=== PATIENT | male | born 1950 | race Hispanic/Latino ===

== ENCOUNTER 2021-09-25 10:17 | Outpatient (CLI) | payer MEDICARE, BC | END 2021-09-25 10:18 | disposition home or self-care (01) | LOC: CSHWCC 10:17 | PROVIDERS: ATTEND Nurse Practitioner Family | DX: E11.621 Type 2 diabetes mellitus with foot ulcer (principal); L97.529 Non-pressure chronic ulcer of other part of left foot with unspecified severity; E03.9 Hypothyroidism, unspecified; E11.42 Type 2 diabetes mellitus with diabetic polyneuropathy; E78.2 Mixed hyperlipidemia; I25.84 Coronary atherosclerosis due to calcified coronary lesion; I70.203 Unspecified atherosclerosis of native arteries of extremities, bilateral legs; I96 Gangrene, not elsewhere classified; Z89.511 Acquired absence of right leg below knee | CPT/HCPCS: 97139; G0463; 99203 ==

== ENCOUNTER 2021-10-02 10:48 | Outpatient (CLI) | payer MEDICARE, BC | END 2021-10-02 10:49 | disposition home or self-care (01) | LOC: CSHWCC 10:48 | PROVIDERS: ATTEND Nurse Practitioner Family | DX: E11.621 Type 2 diabetes mellitus with foot ulcer (principal); E03.9 Hypothyroidism, unspecified; E11.42 Type 2 diabetes mellitus with diabetic polyneuropathy; L97.529 Non-pressure chronic ulcer of other part of left foot with unspecified severity; E78.2 Mixed hyperlipidemia; I25.84 Coronary atherosclerosis due to calcified coronary lesion; I70.203 Unspecified atherosclerosis of native arteries of extremities, bilateral legs; I96 Gangrene, not elsewhere classified; Z89.511 Acquired absence of right leg below knee | CPT/HCPCS: 97139; G0463; 99213 ==

== ENCOUNTER 2021-10-15 08:21 | Outpatient (CLI) | payer MEDICARE, BC | END 2021-10-15 08:22 | disposition home or self-care (01) | LOC: CSHWCC 08:21 | PROVIDERS: ATTEND Nurse Practitioner Family | DX: I96 Gangrene, not elsewhere classified (principal); E11.621 Type 2 diabetes mellitus with foot ulcer; L97.529 Non-pressure chronic ulcer of other part of left foot with unspecified severity; E11.42 Type 2 diabetes mellitus with diabetic polyneuropathy; E11.51 Type 2 diabetes mellitus with diabetic peripheral angiopathy without gangrene; I70.203 Unspecified atherosclerosis of native arteries of extremities, bilateral legs; I25.10 Atherosclerotic heart disease of native coronary artery without angina pectoris; I25.84 Coronary atherosclerosis due to calcified coronary lesion; E03.9 Hypothyroidism, unspecified; E78.2 Mixed hyperlipidemia; Z89.511 Acquired absence of right leg below knee ==

== ENCOUNTER 2021-10-30 08:02 | Outpatient (CLI) | payer MEDICARE, BC | END 2021-10-30 08:03 | disposition home or self-care (01) | LOC: CSHWCC 08:02 | PROVIDERS: ATTEND Nurse Practitioner Family | DX: I96 Gangrene, not elsewhere classified (principal); E11.621 Type 2 diabetes mellitus with foot ulcer; L97.529 Non-pressure chronic ulcer of other part of left foot with unspecified severity; E03.9 Hypothyroidism, unspecified; E11.42 Type 2 diabetes mellitus with diabetic polyneuropathy; E11.51 Type 2 diabetes mellitus with diabetic peripheral angiopathy without gangrene; I70.203 Unspecified atherosclerosis of native arteries of extremities, bilateral legs; I25.10 Atherosclerotic heart disease of native coronary artery without angina pectoris; I25.84 Coronary atherosclerosis due to calcified coronary lesion; Z89.511 Acquired absence of right leg below knee ==

== ENCOUNTER 2021-11-13 08:32 | Outpatient (CLI) | payer MEDICARE, BC | END 2021-11-13 08:33 | disposition home or self-care (01) | LOC: CSHWCC 08:32 | PROVIDERS: ATTEND Nurse Practitioner Family | DX: E11.621 Type 2 diabetes mellitus with foot ulcer (principal); L97.529 Non-pressure chronic ulcer of other part of left foot with unspecified severity; E03.9 Hypothyroidism, unspecified; E11.42 Type 2 diabetes mellitus with diabetic polyneuropathy; E78.2 Mixed hyperlipidemia; I25.84 Coronary atherosclerosis due to calcified coronary lesion; I70.203 Unspecified atherosclerosis of native arteries of extremities, bilateral legs; I96 Gangrene, not elsewhere classified; Z89.511 Acquired absence of right leg below knee ==

== ENCOUNTER 2021-12-08 08:19 | Outpatient (CLI) | payer MEDICARE, BC | END 2021-12-08 08:20 | disposition home or self-care (01) | LOC: CSHWCC 08:19 | PROVIDERS: ATTEND Nurse Practitioner Family | DX: E11.621 Type 2 diabetes mellitus with foot ulcer (principal); L97.529 Non-pressure chronic ulcer of other part of left foot with unspecified severity; I96 Gangrene, not elsewhere classified; E03.9 Hypothyroidism, unspecified; E11.42 Type 2 diabetes mellitus with diabetic polyneuropathy; E78.2 Mixed hyperlipidemia; I25.84 Coronary atherosclerosis due to calcified coronary lesion; I70.203 Unspecified atherosclerosis of native arteries of extremities, bilateral legs; Z89.511 Acquired absence of right leg below knee ==

== ENCOUNTER 2023-01-28 08:06 | Outpatient (CLI) | payer MEDICARE, BC | END 2023-01-28 08:07 | disposition home or self-care (01) | LOC: CSHWCC 08:06 | PROVIDERS: ATTEND Nurse Practitioner Family | DX: E11.621 Type 2 diabetes mellitus with foot ulcer (principal); L97.521 Non-pressure chronic ulcer of other part of left foot limited to breakdown of skin | CPT/HCPCS: 11042; 97139; G0463; 99213 ==

== ENCOUNTER 2023-02-11 10:56 | Outpatient (CLI) | payer MEDICARE, BC | END 2023-02-11 10:57 | disposition home or self-care (01) | LOC: CSHWCC 10:56 | PROVIDERS: ATTEND Nurse Practitioner Family | DX: E11.621 Type 2 diabetes mellitus with foot ulcer (principal); L97.521 Non-pressure chronic ulcer of other part of left foot limited to breakdown of skin | CPT/HCPCS: 11042 ==

== ENCOUNTER 2023-03-11 10:27 | Outpatient (CLI) | payer MEDICARE, BC | END 2023-03-11 10:28 | disposition home or self-care (01) | LOC: CSHWCC 10:27 | PROVIDERS: ATTEND Nurse Practitioner Family | DX: E11.621 Type 2 diabetes mellitus with foot ulcer (principal); L97.521 Non-pressure chronic ulcer of other part of left foot limited to breakdown of skin | CPT/HCPCS: 11042; 97139; G0463; 99212 ==

== ENCOUNTER 2023-05-06 09:37 | Outpatient (CLI) | payer MEDICARE, BC | END 2023-05-06 09:38 | disposition home or self-care (01) | LOC: CSHWCC 09:37 | PROVIDERS: ATTEND Nurse Practitioner Family | DX: E11.621 Type 2 diabetes mellitus with foot ulcer (principal); L97.521 Non-pressure chronic ulcer of other part of left foot limited to breakdown of skin | CPT/HCPCS: 11042 ==

== ENCOUNTER 2023-06-17 09:46 | Outpatient (CLI) | payer MEDICARE, BC | END 2023-06-17 09:47 | disposition home or self-care (01) | LOC: CSHWCC 09:46 | PROVIDERS: ATTEND Nurse Practitioner Family | DX: E11.621 Type 2 diabetes mellitus with foot ulcer (principal); L97.521 Non-pressure chronic ulcer of other part of left foot limited to breakdown of skin | CPT/HCPCS: 97139; G0463; 11042; 99211 ==

== ENCOUNTER 2023-07-15 09:33 | Outpatient (CLI) | payer MEDICARE, BC | END 2023-07-15 09:34 | disposition home or self-care (01) | LOC: CSHWCC 09:33 | PROVIDERS: ATTEND Nurse Practitioner Family | DX: E11.621 Type 2 diabetes mellitus with foot ulcer (principal); L97.521 Non-pressure chronic ulcer of other part of left foot limited to breakdown of skin | CPT/HCPCS: 11042 ==

== ENCOUNTER 2023-08-04 10:07 | Outpatient (CLI) | payer MEDICARE, BC | END 2023-08-04 10:08 | disposition home or self-care (01) | LOC: CSHULT 10:07 | PROVIDERS: ATTEND Physician Assistant Medical | DX: R74.8 Abnormal levels of other serum enzymes (principal) | CPT/HCPCS: 76705 ==

== ENCOUNTER 2024-04-17 13:15 | Outpatient (CLI) | payer MEDICARE, BC | END 2024-04-17 13:16 | disposition home or self-care (01) | LOC: CSHWCC 13:15 | PROVIDERS: ATTEND Nurse Practitioner Family | DX: T81.31XD Disruption of external operation (surgical) wound, not elsewhere classified, subsequent encounter (principal); E11.621 Type 2 diabetes mellitus with foot ulcer; L97.509 Non-pressure chronic ulcer of other part of unspecified foot with unspecified severity | CPT/HCPCS: 11042; 97605; G0463; 99204 ==

== ENCOUNTER 2024-05-01 15:07 | Outpatient (CLI) | payer MEDICARE, BC | END 2024-05-01 15:08 | disposition home or self-care (01) | LOC: CSHWCC 15:07 | PROVIDERS: ATTEND Nurse Practitioner Family | DX: T81.31XD Disruption of external operation (surgical) wound, not elsewhere classified, subsequent encounter (principal); M86.172 Other acute osteomyelitis, left ankle and foot | CPT/HCPCS: 11042; 97605 ==

== ENCOUNTER 2024-05-15 14:51 | Outpatient (CLI) | payer MEDICARE, BC | END 2024-05-15 14:52 | disposition home or self-care (01) | LOC: CSHWCC 14:51 | PROVIDERS: ATTEND Nurse Practitioner Family | DX: T81.31XD Disruption of external operation (surgical) wound, not elsewhere classified, subsequent encounter (principal); E11.621 Type 2 diabetes mellitus with foot ulcer; M86.172 Other acute osteomyelitis, left ankle and foot | CPT/HCPCS: 11042; 87070; 87077; 87186; 87205; 97605; 99213; G0463 ==

== ENCOUNTER 2024-05-29 11:27 | Outpatient (CLI) | payer MEDICARE, BC | END 2024-05-29 11:28 | disposition home or self-care (01) | LOC: CSHWCC 11:27 | PROVIDERS: ATTEND Nurse Practitioner Family | DX: E11.621 Type 2 diabetes mellitus with foot ulcer (principal); L97.522 Non-pressure chronic ulcer of other part of left foot with fat layer exposed; M86.172 Other acute osteomyelitis, left ankle and foot ==

== ENCOUNTER 2024-06-13 09:44 | Outpatient (CLI) | payer MEDICARE, BC | END 2024-06-13 09:45 | disposition home or self-care (01) | LOC: CSHWCC 09:44 | PROVIDERS: ATTEND Nurse Practitioner Family | DX: E11.621 Type 2 diabetes mellitus with foot ulcer (principal); L97.522 Non-pressure chronic ulcer of other part of left foot with fat layer exposed; M86.172 Other acute osteomyelitis, left ankle and foot | CPT/HCPCS: 11042 ==

== ENCOUNTER 2024-06-20 14:16 | Outpatient (CLI) | payer MEDICARE, BC | END 2024-06-20 14:17 | disposition home or self-care (01) | LOC: CSHWCC 14:16 | PROVIDERS: ATTEND Nurse Practitioner Family | DX: E11.621 Type 2 diabetes mellitus with foot ulcer (principal); L97.522 Non-pressure chronic ulcer of other part of left foot with fat layer exposed; M86.172 Other acute osteomyelitis, left ankle and foot | CPT/HCPCS: 11042 ==